=== PATIENT | male | born 1975 | race African-American/Black ===

== ENCOUNTER → 2024-06-18 | Outpatient (CLI) | payer BC, SELFPAY ==
--- NOTE | 2024-06-18 13:37 | XR_ITS ---
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
== END | disposition home or self-care (01) ==
DX: M19.032 Primary osteoarthritis, left wrist (principal)
CPT/HCPCS: 73110

== ENCOUNTER 2024-08-16 17:50 | Emergency (ER) | payer BC, SELFPAY ==
[2024-08-16 17:51] VITALS: BMI 32.5
[2024-08-16 19:00] VITALS: BP 154/97; PULSE 97; RESP 19; TEMP 36.9; O2SAT 98
--- NOTE | 2024-08-16 19:21 | XR_ITS ---
Examination: CT abdomen and pelvis without contrast. Coronal 3-D reconstructions. Sagittal 2-D reconstructions. Date and time of exam:August 16, 20242009 hrs. Indications: Onset left-sided flank pain today CTDI: vol (mGy): 10.4 DLP: (mGycm): 694 Technique: Axial images of the abdomen have been obtained, 3 mm slice thickness Intravenous contrast material has not been administered. Low dose protocols were performed. One or more of the following dose reduction techniques were used; automated exposure control, adjustment of the mA and/or KV according to patient size, use of iterative reconstruction technique. Findings: Diffuse fatty infiltration throughout the liver No splenic lesion No gallstones No pancreatic mass 2 mm upper pole right renal calculus, no hydronephrosis or ureteral calculi Aorta normal size Normal appendix No bowel obstruction No bladder mass or bladder calculi No prostatomegaly Impression: 2 mm nonobstructing right renal calculus, no hydronephrosis or ureteral calculi Normal appendix No bowel obstruction No bladder calculi
--- NOTE | 2024-08-16 19:22 | PD.EDRME ---
Rapid Medical Screening Exam RME Arrival date/time: 08/16/24 17:50 48 yo m present to ED for c/o right flank pain for 2 weeks I have greeted and performed a focused initial assessment of this patient. A comprehensive ED assessment and evaluation of the patient, analysis of all test results, and completion of the medical decision making process will be conducted by additional ED providers. Chief Complaint: Abdominal Pain Time Seen by Provider: 08/16/24 18:51 Vital signs: Vital Signs Temperature 98.4 F 08/16/24 19:00 Pulse Rate 97 08/16/24 19:00 Respiratory Rate 19 08/16/24 19:00 Blood Pressure 154/97 H 08/16/24 19:00 Pulse Oximetry (%) 98 08/16/24 19:00 Oxygen Delivery Method Room Air 08/16/24 19:00
[2024-08-16 19:59] LABS: Basophils # (Auto) 0.1 Thou/mm3 (0.0-0.2); Basophils % (Auto) 1 % (0-2.5); Eosinophils # (Auto) 0.3 Thou/mm3 (0.0-0.5); Eosinophils % (Auto) 4 % (0-10); Hematocrit 42.8 % (41.0-53.0); Hemoglobin 15.1 g/dL (13.5-16.0); Immature Granulocytes % (Auto) 0 % (0-0); Immature Granulocytes Auto 0.03 Thou/mm3 (0.00-0.00); Lymphocytes # (Auto) 4.6 Thou/mm3 (1.0-4.8); Lymphocytes % (Auto) 48 % (10-50); Mean Corpuscular HGB Conc 35.3 g/dl (31.0-37.0); Mean Corpuscular Hemoglobin 26.3 pg (25.0-35.0); Mean Corpuscular Volume 75 fL (80-100); Monocytes # (Auto) 0.6 Thou/mm3 (0.0-0.8); Monocytes % (Auto) 6 % (0-12); Neutrophils # (Auto) 3.9 Thou/mm3 (1.8-7.7); Neutrophils % (Auto) 41 % (37-80); Nucleated Red Blood Cell % 0 /100 WBC (0); Platelet Count 364 Thou/mm3 (140-440); RDW Standard Deviation 39.7 fL (35.1-43.9); Red Blood Count 5.74 Miln/mm3 (4.50-5.90); White Blood Count 9.5 Thou/mm3 (3.8-10.6)
[2024-08-16 20:18] LABS: Alanine Aminotransferase 16 U/L (10-49); Albumin, Serum 4.5 gm/dL (3.5-5.0); Albumin/Globulin Ratio 1.6 (1.2-2.2); Alkaline Phosphatase 79 U/L (46-116); Anion Gap 7 (7-16); Aspartate Amino Transferase 15 U/L (0-34); BUN/Creatinine Ratio 10 Ratio (12-20); Bilirubin,Total 0.5 mg/dL (0.3-1.2); Blood Urea Nitrogen 8 mg/dL (9-23); Calcium 9.5 mg/dL (8.3-10.6); Calcium (Corrected) 9.5 mg/dL (8.5-10.1); Chloride 107 mMol/L (98-107); Creatinine (Component) 0.8 mg/dL (0.6-1.3); Globulin 2.9 gm/dL (2.3-3.5); Glucose 111 mg/dL (74-106); Lipase 29 U/L (12-53); Osmolality,Calculated 276 (275-295); Potassium 4.1 mMol/L (3.4-5.1); Sodium 139 mMol/L (136-145); Total Protein 7.4 gm/dL (5.7-8.2); eGFR > 60 See Note
[2024-08-16 21:44] LABS: Collection Type, Urine Voided; Squamous Epithelial Cell,Urine 0 /hpf (0-5)
[2024-08-16 21:53] LABS: Bilirubin,Urine Negative (Negative); Blood,Urine Negative (Negative); Clarity,Urine Clear (Clear/Hazy); Color,Urine Lt-Yellow (Lt Yel-Yel); Glucose, Urine 4+ (Negative); Ketones,Urine Trace (Negative); Leukocyte Esterase,Urine Negative (Negative); Nitrite,Urine Negative (Negative); PH,Urine 6.5 (5.0-7.0); Protein,Urine 1+ (Neg - Trace); RBC,Urine 5 /hpf (0-3); Specific Gravity,Urine 1.041 (1.001-1.035); Urobilinogen,Urine Negative mg/dL (0.0-1.0); WBC,Urine 2 /hpf (0-5)
--- NOTE | 2024-08-16 22:04 | EDNOTE_ITS ---
ED Abdominal Pain RME/HPI General Chief Complaint: Abdominal Pain Stated complaint: Left flank pain Time seen by provider: 08/16/24 18:51 Arrival date/time: 08/16/24 17:50 48 year old male present to emergency room with c/o of left flank pain for 2 weeks. denies any similar sx in the past. LOCATION: flank SEVERITY: Symptoms are described as being severe with limitations on activities of daily living QUALITY: Symptoms are described as being cramping CONTEXT: The patient is unable to identify any inciting events. DURATION/TIMING: The symptoms started approximately 14 day ago and have been waxing/waning but always present without ever completely resolving. ASSOCIATED SYMPTOMS: The patient is unable to identify any other associated symptoms. MODIFYING FACTORS: The patient is unable to identify any alleviating or aggravating symptoms. PERTINENT ROS: no fevers, no anorexia, no nausea or vomiting, no diarrhea, no ripping or tearing sensations, no syncope or presyncopal symptoms, denies trauma, denies genital pain REVIEW OF SYSTEMS: See History of Present Illness - with the exception of those mentioned in the history of present illness, all other systems reviewed and reported as negative GENERAL: In general the patient is awake, interactive, in an emergency department gurney. HEAD/EYES/EARS/NOSE/THROAT: normo-cephalic, atraumatic, mucus membranes are moist, anicteric, palpebral conjunctiva is pink, trachea is midline. CARDIOVASCULAR: regular rate and regular rhythm, no murmurs, heart sounds are not distant, strong pulses in all four extremities that are equal and symmetric bilateral upper and lower extremities, normal capillary refill. CHEST/PULMONARY: normal chest rise and fall, good air movement, clear to auscultation bilaterally, normal inspiratory to expiratory ratios without evidence of respiratory distress. NECK: No midline/Paraspinal tenderness, no step off ROM/Strenght intact No Kernig and bruzinski sign. No trauma ABDOMEN: soft, not tender, no masses appreciated BACK: + left flank tenderness, no cva tenderness normal range of motion without pain. NEUROLOGICAL: cranio-facial features are symmetric, moves all four extremities equally without obvious limitations or weakness. EXTREMITY: no tenderness to palpation over the long bones or large joints of the bilateral upper and lower extremities, no joint swelling, no joint erythema, no signs of trauma, no unilateral leg swelling and no peripheral edema. SKIN: warm, dry, well-perfused, no jaundice, no rash, no telangiectasias or petechia. PSYCH: calm, cooperative, no evidence of psychosis or agitation RME / HPI RME / HPI narrative: 08/16/24 17:50 48 yo m present to ED for c/o right flank pain for 2 weeks I have greeted and performed a focused initial assessment of this patient. A comprehensive ED assessment and evaluation of the patient, analysis of all test results, and completion of the medical decision making process will be conducted by additional ED providers. Related Data Previous Rx's ?Medication ?Instructions ?Recorded Methylprednisolone DOSE PACK * 4 mg PO UD PRN Take as directed 05/10/17 (MEDROL DOSE PACK *) ##21 albuterol sulfate 90 mcg/actuation 2 puff inhalation Q 4HR PRN dyspnea 05/10/17 aerosol inhaler (ProAir HFA) #1 inh ibuprofen 800 mg tablet (IBU) 800 mg PO TID PRN fever or pain 08/16/24 #30 tabs Allergies Allergy/AdvReac Type Severity Reaction Status Date / Time NKA* Allergy Uncoded 05/10/17 19:48 Course Course Course Narrative: Presentation most consistent with Renal Colic from a Non-infected Kidney Stone. Given History and Exam I have lower suspicion for atypical appendicitis, genital torsion, acute cholecystitis, AAA, Aortic Dissection, Serious Bacterial Illness or other emergent intraabdominal pathology. Workup: CBC, BMP, CT Abd/Pelvis noncontrast, UA, reassess Findings: Reassesment: Patient tolerating PO and pain controlled Disposition:? Discharge. Strict return precautions for infected stone or PO intolerance discussed. Quality Measures none Orders Category Date Time Status CT abdomen pelvis wo con Stat Exams 08/16/24 19:21 Completed CBC Stat Lab 08/16/24 19:39 Completed CMP [Comprehensive Metabolic Panel] Stat Lab 08/16/24 19:39 Completed Lipase Stat Lab 08/16/24 19:39 Completed UA [Urinalysis] Stat Lab 08/16/24 20:39 Completed Ketorolac Inj [Toradol Inj] Med 08/16/24 22:04 Once 30 mg IM X1 ONE Vital Signs Vital signs: Vital Signs Temperature 98.4 F 08/16/24 19:00 Pulse Rate 97 08/16/24 19:00 Respiratory Rate 19 08/16/24 19:00 Blood Pressure 154/97 H 08/16/24 19:00 Pulse Oximetry (%) 98 08/16/24 19:00 Oxygen Delivery Method Room Air 08/16/24 19:00 Abdominal Pain MDM Patient data External records reviewed:: [facility] previous records Clinical information provided by:: none Social determinants that could affect healthcare access:: none Patient has the following chronic illnesses:: n/a How is presenting disease/condition affected by chronic disease/condition?: no chronic disease Evaluation data The following diagnostics were reviewed and interpreted by me:: lab results and radiology exam(s) Lab and/or radiology exams considered but not ordered:: n/a Interpretation Summary: ct: Diffuse fatty infiltration throughout the liver No splenic lesion No gallstones No pancreatic mass 2 mm upper pole right renal calculus, no hydronephrosis or ureteral calculi Aorta normal size Normal appendix No bowel obstruction No bladder mass or bladder calculi No prostatomegaly Impression: 2 mm nonobstructing right renal calculus, no hydronephrosis or ureteral calculi Normal appendix No bowel obstruction No bladder calculi cbc/cmp no acute finding urine: + rbc no infection Medications / Prescriptions Medications or Prescriptions considered but not ordered:: n/a Medication administrations:: Medication Administration History Ketorolac Tromethamine (Ketorolac Inj 60 Mg/2 Ml Vial) 30 mg IM X1 ONE Stop: 08/16/24 22:05 as state above Consultations Consultation(s) initiated? (list below): No Diagnosis Differential diagnosis abdominal pain: abdominal pain, calculus of kidney, constipation, diverticulitis, gastroenteritis and small bowel obstruction Most likely diagnosis given after review of the tests above:: kidney stone Admission Indicated Admission indicated?: not indicated Admission Request Was there a request for admission?: No Disposition Plan Disposition Plan: Discharge Discharge Attestation Discharge Attestation: The patient and all family members were given an opportunity to ask questions and understood the discharge instructions. Discharge instructions specifically effects, indications for sooner follow up or return to the emergency department, and the expected course of current diagnosis. Patient condition: Stable Discharge Plan Plan Patient Disposition: HOME (Self Care) Health Concerns: Follow with PMD as directed Take tylenol or motrin as need Return to ED if sx worsen Prescriptions/Referrals Prescriptions/Med Rec: New ibuprofen [IBU] 800 mg tablet 800 mg PO TID PRN (Reason: fever or pain) Qty: 30 0RF No Action albuterol sulfate [ProAir HFA] 8.5 GM HFA aerosol inhaler 2 puff Inhalation Q4HR PRN (Reason: dyspnea) Qty: 1 0RF Rx Instructions: any albuterol ok; dispense with spacer Methylprednisolone DOSE PACK * (MEDROL DOSE PACK *) 4 MG/DOSE PACK TAB.DS.PK 4 mg PO UD PRN (Reason: Take as directed) Qty: 21 0RF Referrals: No Primary/Family,Physician [Primary Care Provider] - In 1 week Problem List Clinical Impression: Kidney stone Patient/Caregiver Discharge Instructions Education Materials: Identifying Kidney Stones Print Language: Bulgarian Stand Alone Forms: Corrie Award Info., Patient Portal Info Letter
[2024-08-16] MEDS: KETOROLAC INJ 60 MG/2 ML VIAL 30 MG IM (22:20)
[2024-08-16 22:34] VITALS: PULSE 78; RESP 19; TEMP 36.7; O2SAT 99
== END 2024-08-16 22:35 | disposition home or self-care (01) ==
PROVIDERS: Physician Assistant; Emergency Provider Emergency Medicine
DX: N20.0 Calculus of kidney (principal); K76.0 Fatty (change of) liver, not elsewhere classified
CPT/HCPCS: 36415; 74176; 80053; 81001; 83690; 85025; 96372; 99284; J1885